=== PATIENT | male | born 1980 | race Caucasian/White ===

== ENCOUNTER 2016-07-05 08:40 | Outpatient (CLI) | payer OTHER ==
--- NOTE | 2016-07-05 10:49 | DIAGNOSTIC IMAGING REPORT ---
PROCEDURE: XR WRIST MIN 3 VIEWS - RIGHT INDICATION: R WRIST PAIN TECHNIQUE: Four views of the right wrist. COMPARISON: None. FINDINGS: Normal mineralization. No fractures. Normal osseous alignment. Old healed fifth metacarpal fracture. No suspicious soft-tissue calcification or radiodense foreign bodies. IMPRESSION: 1. Intact right wrist.
== END 2016-07-05 23:00 ==
LOC: XR SRH 08:40
DX: M25.531 Pain in right wrist (principal)